=== PATIENT | male | born 1985 | race Caucasian/White ===

== ENCOUNTER 2020-07-30 18:42 | Emergency (ER) | payer MEDICARE, MEDICAID ==
--- NOTE | 2020-07-30 19:22 | ER Document Report ---
ED Medical Screen (RME) - General Chief Complaint: Psych Problem Stated Complaint: BEHAVIORAL PROBLEM - HPI Notes: 07/30/20 19:20 35-year-old male with history of profound mental disability presents to ED for evaluation of increasingly violent behavior. Patient's brother accompanies him here. Patient was brought in by EMS as he did not want to leave the park and was behaving erratically. Patient's brother states that he has history of doing this and has been increasingly aggressive. They deny drug use at this time. I did evaluate patient upon his initial arrival to the emergency department as he did require four-point restraints due to his aggressive behaviors. - Related Data Allergies/Adverse Reactions: No Known Allergies Allergy (Verified 07/30/20 19:11) Home Medications: Lorazepam, Pantroprazole, Quetiapine, Sertraline Physical Exam - Vital signs Vitals: Temp Pulse Resp BP Pulse Ox 98 F 88 16 139/76 H 98 07/30/20 19:11 07/30/20 19:11 07/30/20 19:11 07/30/20 19:11 07/30/20 19:11 Patient was calm and cooperative after restraints were applied. Rate and rhythm on auscultation of his heart Decreased breath sounds. Will start IVC order set to evaluate for psych and restraint order placed at this time. Course - Vital Signs Vital signs: Temp Pulse Resp BP Pulse Ox 98 F 88 16 139/76 H 98 07/30/20 19:11 07/30/20 19:11 07/30/20 19:11 07/30/20 19:11 07/30/20 19:11
[2020-07-30 19:52] LABS: ABSOLUTE EOSINOPHILS # (AUTO) 0.1 10^3/uL (0.0-0.6); ABSOLUTE LYMPHOCYTES (AUTO) 1.4 10^3/uL (0.5-4.7); ABSOLUTE MONOCYTES (AUTO) 0.6 10^3/uL (0.1-1.4); ABSOLUTE NEUT (AUTO) 7.5 10^3/uL (1.7-8.2); BASOPHILS % (AUTO) 0.5 % (0-2); EOSINOPHILS % (AUTO) 0.6 % (0-6); HEMATOCRIT 36.9 % (37.9-51.0); HEMOGLOBIN 12.7 g/dL (13.5-17.0); LYMPHOCYTES % (AUTO) 14.1 % (13-45); MEAN CORPUSCULAR HEMOGLOBIN 29.4 pg (27.0-33.4); MEAN CORPUSCULAR HGB CONC 34.4 g/dL (32.0-36.0); MEAN CORPUSCULAR VOLUME 86 fl (80-97); MONOCYTES % (AUTO) 6.7 % (3-13); PLATELET COUNT 146 10^3/uL (150-450); RED BLOOD COUNT 4.31 10^6/uL (4.35-5.55); RED CELL DISTRIBUTION WIDTH 13.6 % (11.5-14.0); SEGMENTED NEUTROPHILS % (AUTO) 78.1 % (42-78); TOTAL CELLS COUNTED % (AUTO) 100 %; WHITE BLOOD COUNT 9.6 10^3/uL (4.0-10.5)
[2020-07-30] MEDS ORDERED: LORAZEPAM INJ 2 MG/1 ML VIAL IV ONE (20:05)
--- NOTE | 2020-07-30 20:06 | RADIOLOGY REPORT (SQ) ---
EXAM DESCRIPTION: CHEST SINGLE VIEW IMAGES COMPLETED DATE/TIME: 07/30/2020 7:33 pm REASON FOR STUDY: cough COMPARISON: None. EXAM PARAMETERS: NUMBER OF VIEWS: One view. TECHNIQUE: Single frontal radiographic view of the chest acquired. RADIATION DOSE: NA LIMITATIONS: None. FINDINGS: LUNGS AND PLEURA: No opacities, masses or pneumothorax. No pleural effusion. MEDIASTINUM AND HILAR STRUCTURES: No masses. Contour normal. HEART AND VASCULAR STRUCTURES: Heart normal in size. Normal vasculature. BONES: Convex rightward thoracic curvature with Culp rods HARDWARE: None in the chest. OTHER: No other significant finding. IMPRESSION: NO ACUTE RADIOGRAPHIC FINDING IN THE CHEST. TECHNICAL DOCUMENTATION: JOB ID: [id number] 2010 [email or web address]- All Rights Reserved Reading location - IP/workstation name: [email or web address]
[2020-07-30 20:11] LABS: ALBUMIN 4.3 g/dL (3.5-5.0); ALKALINE PHOSPHATASE 102 U/L (38-126); ANION GAP 5 (5-19); ASPARTATE AMINO TRANSFERASE 33 U/L (17-59); BILIRUBIN,DIRECT 0.2 mg/dL (0.0-0.4); BILIRUBIN,TOTAL 1.8 mg/dL (0.2-1.3); BLOOD UREA NITROGEN 19 mg/dL (7-20); CALCIUM 9.3 mg/dL (8.4-10.2); CARBON DIOXIDE 31 mmol/L (22-30); CHLORIDE 104 mmol/L (98-107); GLUCOSE 95 mg/dL (75-110); POTASSIUM 3.9 mmol/L (3.6-5.0); TOTAL PROTEIN 7.3 g/dL (6.3-8.2)
[2020-07-30 20:13] LABS: ACETAMINOPHEN < 10 ug/mL (10-30); ALCOHOL < 10 mg/dL (NONE DETECTED); SALICYLATE < 1.0 mg/dL (2.0-20.0)
--- NOTE | 2020-07-30 20:42 | EKG REPORT ---
SEVERITY:- NORMAL ECG - SINUS RHYTHM ST ELEV, PROBABLE NORMAL EARLY REPOL PATTERN : Confirmed by: Daniella Moore MD 30-Jul-2020 20:41:57
[2020-07-30] MEDS ORDERED: ACETAMINOPHEN 325 MG TABLET PO ONE (22:08)
[2020-07-30] MEDS ORDERED: DIPHENHYDRAMINE HCL 25 MG CAPSULE PO ONE (22:08)
[2020-07-30] MEDS ORDERED: ZIPRASIDONE MESYLATE INJ/PF 20 MG SDV IM ONE (22:10)
[2020-07-30 22:45] LABS: APPEARANCE,URINE CLEAR; BILIRUBIN,URINE NEGATIVE (NEGATIVE); COLOR,URINE YELLOW; GLUCOSE, URINE NEGATIVE (NEGATIVE); KETONES,URINE 20 mg/dL (NEGATIVE); LEUKOCYTE ESTERASE,URINE NEGATIVE (NEGATIVE); NITRITE,URINE NEGATIVE (NEGATIVE); PROTEIN,URINE NEGATIVE (NEGATIVE); URINE SPECIFIC GRAVITY 1.028
[2020-07-30 22:58] LABS: URINE AMPHETAMINES SCREEN NEGATIVE; URINE BARBITURATES SCREEN NEGATIVE; URINE BENZODIAZEPINES SCREEN NEGATIVE; URINE COCAINE SCREEN NEGATIVE; URINE MARIJUANA (THC) SCREEN NEGATIVE; URINE METHADONE SCREEN NEGATIVE; URINE PHENCYCLIDINE SCREEN NEGATIVE
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
[2020-07-31] MEDS ORDERED: ZIPRASIDONE MESYLATE INJ/PF 20 MG SDV IM ONE (06:10)
[2020-07-31] MEDS ORDERED: DIPHENHYDRAMINE HCL 50 MG/ML VIAL IM ONE (06:11)
[2020-07-31 10:10] VITALS: BP 105/55
[2020-07-31] MEDS ORDERED: DIVALPROEX SODIUM 500 MG TAB.SR.24H PO ONE (10:31)
[2020-07-31] MEDS ORDERED: OLANZAPINE 2.5 MG TABLET PO ONE (10:31)
--- NOTE | 2020-07-31 10:57 | PSYCHOLOGICAL NOTE ---
Psych Note - Psych Note Date seen by psych provider: 07/31/20 Time seen by psych provider: 09:20 Psych Note: Reason for Consult:violent behaviour Consent Permissions: patient's bother, Braeden at bedside Patient arrived to [facility] via EMS after having a behavioral outburst while at the park with family. Patient was told that it was time to go which resulted in a behavioral outburst. Patient is observed talking to his brother about going to his new room and watching TV. He also talks about fishing tomorrow. Patient is very childlike in presentation. He is currently calm and reporting that he is tired. Clinician notes these observations were conducted while clinician was in hallway. When clinician entered the room patient rolled over onto his stomach and did not engage. Clinician spoke with patient's brother Braeden. He reports that the patient has only a diagnosis of MR and when he was younger spina bifida which he now has pins in his back forearm. He discloses that the patient has been living with her parents and his parents have been hiding the patient's behaviors. There is concern that his parents being in their 80s were not unable to care for themselves or the patient. He is requesting assistance for medications to address the behaviors while waiting to get into outpatient services. Patient arrived to the local area approximately 1 month ago from [place]. He has an appointment with [facility] tomorrow 08/01/2020 with a medical provider where they are hoping to get further referrals. Patient's Medicaid has not been transferred to [place] yet. Clinical Presentation: Behaviour outburst Intellectual developmental disorder IVC Criteria per [place] GS 122C Dangerous to others Within the relevant past the individual No has inflicted or attempted to inflict or threatened to inflict serious bodily harm on another AND No that there is a reasonable probability that this conduct will be repeated as there is an absence of supervision or structure to prevent. OR YES has acted in such a way as to create a substantial risk of serious bodily harm to another AND No that there is a reasonable probability that this conduct will be repeated as there is an absence of supervision or structure to prevent. 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 Patient had been unmedicated and is recently moved to the local area to be with family. Family confirm they would like the patient to return home in their care. Patient is no longer demonstrating concerning behaviors and medication recommendations have been provided and started. He has an outpatient provider appointment tomorrow 08/01/2020. OR No has engaged in extreme destruction of property AND NO that there is a reasonable probability that this conduct will be repeated as there is an absence of supervision or structure to prevent. Previous episodes of dangerousness to others, when applicable, may be considered when determining reasonable probability of future dangerous conduct. Clear, cogent, and convincing evidence that an individual has committed a homicide in the relevant past is prima facie evidence of dangerousness to others. Dangerous to self Within the relevant past the individual has done any of the following: acted in such a way as to show ALL of the following: No The individual would be unable without care, supervision, and the continued assistance of others not otherwise available, to exercise self- control, judgment, and discretion in the conduct of the individual's daily responsibilities and social relations or to satisfy the individual's need for nourishment, personal or medical care, fdc, or self-protection and safety. AND No There is a reasonable probability of the individual suffering serious physical debilitation within the near future unless adequate treatment is given. A showing of behavior that is grossly irrational, of actions that the individual is unable to control, of behavior that is grossly inappropriate to the situation, or of other evidence of severely impaired insight and judgment shall create a prima facie inference that the individual is unable to care for himself or herself. OR No has attempted suicide or threatened suicide AND No that there is a reasonable probability of suicide unless adequate treatment is given as there is an absence of supervision or structure to prevent suicide of patient who has made an attempt, serious gesture or threat. OR No has mutilated himself or herself or attempted to mutilate himself or herself AND No that there is a reasonable probability of serious self-mutilation unless adequate treatment is given as there is an absence of supervision or structure to prevent. NOTE: Previous episodes of dangerousness to self, when applicable, may be con sidered when determining reasonable probability of physical debilitation, suicide, or self-mutilation. Medication recommendations per [facility] contracted psychiatrist are as follows: Please discontinue home medications of Seroquel and Zoloft Please start Depakote 500 mg twice daily Please start Zyprexa 2.5 mg twice daily Impression\plan: Patient is recommended for rescind of 24-hour petition for evaluation and is cleared from acute psychiatric services; paperwork is signed and placed in patient's chart. Patient does not meet IVC criteria per [place] GS 122C. 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 Patient had been unmedicated and is recently moved to the local area to be with family. Family confirm they would like the patient to return home in their care. Patient is no longer demonstrating concerning behaviors and medication recommendations have been provided and started. He has an outpatient provider appointment tomorrow 08/01/2020. Patient family has provided multiple resources to assist in setting up additional support and obtain services in the local area. Referral to community paramedics will be submitted for additional assistance while patient is being established with local providers. Dr. Kay was consulted to care management of this patient; attending physicians in agreement with recommendations and disposition.
== END 2020-07-31 11:13 | disposition home or self-care (01) ==
LOC: ER 18:42
DX: F71 Moderate intellectual disabilities (principal); R45.6 Violent behavior; Z79.899 Other long term (current) drug therapy; Z78.1 Physical restraint status
CPT/HCPCS: 93005; 99285; 96372; 96374; 36415; 80307 ×4; 85025; 80053; 81001; 71045; 93010; J1200; A9270 ×2; J2060; J3486 ×2; J3490